=== PATIENT | female | born 1940 | race African-American/Black ===

== ENCOUNTER 2017-11-10 07:54 | Outpatient (CLI) | payer MEDICARE, OTHER | END 2017-11-10 07:55 | disposition home or self-care (01) | LOC: BICMAMMO 07:54 | PROVIDERS: ATTEND Family Medicine | DX: Z12.31 Encounter for screening mammogram for malignant neoplasm of breast (principal); Z80.3 Family history of malignant neoplasm of breast | CPT/HCPCS: 77063; 77067 ==

== ENCOUNTER 2017-12-06 07:15 | Inpatient (IN) | payer MEDICARE, OTHER ==
[2017-12-06 08:02] LABS: #Eosinphils 0.2 thou/uL (0.0-0.7); #Lymphocytes 2.1 thou/uL (1.20-3.40); #Monocytes 0.4 thou/uL (0.11-0.59); #Neutrophils 2.4 thou/uL (1.40-6.50); %Basophils 0.8 % (0.0-1.0); %Eosinophils 3.5 % (0.0-10.0); %Monocytes 7.6 % (0.0-10.0); %Neutrophils 47.2 % (42.0-75.0); Hemoglobin 12.2 g/dL (12.0-16.0); Mean Corpuscular HGB CONC 33.2 g/dL (32.0-36.0); Mean Corpuscular Hemoglobin 28.4 pg (27.0-31.0); Mean Corpuscular Volume 85.6 fL (78.0-98.0); Mean Platelet Volume 8.3 fL (7.4-10.4); Platelet Count 152 thou/uL (130-400); RBC Distribution Width 11.4 % (11.5-14.5); Red Blood Cell (RBC) Count 4.28 mill/uL (4.20-5.40); White Blood Cell (WBC) Count 5.1 thou/uL (4.8-10.8)
[2017-12-06 08:16] LABS: ALT (SGPT) 16 U/L (8-55); AST (SGOT) 21 U/L (5-34); Albumin 3.8 g/dL (3.4-4.8); Alkaline Phosphatase 77 U/L (40-150); Anion Gap 14 mmol/L (10-20); BUN (Urea Nitrogen) 12 mg/dL (9.8-20.1); Bilirubin, Total 0.5 mg/dL (0.2-1.2); Calc. Creatinine Clearance 0 mL/min (70-130); Calcium 9.7 mg/dL (7.8-10.44); Carbon Dioxide 25 mmol/L (23-31); Chloride 106 mmol/L (98-107); Estimated GFR-MDRD 83; Globulin 3.7 g/dL (2.4-3.5); Glucose 145 mg/dL (83-110); Potassium 3.7 mmol/L (3.5-5.1); Protein, Total 7.5 g/dL (6.0-8.3); Sodium 141 mmol/L (136-145)
[2017-12-06 08:52] LABS: Troponin I 0.019 ng/mL (< 0.028)
--- NOTE | 2017-12-06 08:55 | RAD ---
SINGLE VIEW OF THE CHEST: COMPARISON: 12/28/15. HISTORY: Difficulty breathing and cough. FINDINGS: A single view of the chest shows a cardiomediastinal silhouette which is upper limits of normal in si ze. Bilateral pulmonary vascular enlargement is more prominent than on the prior exam. No consolida tion or pleural effusion are seen. IMPRESSION: Worsening pulmonary vascular congestion may represent volume overload or congestive heart failure. POS: H
[2017-12-06] MEDS ORDERED: Furosemide 40 MG/4 ML VIAL ONE (09:50)
[2017-12-06 11:53] LABS: Troponin I 0.024 ng/mL (< 0.028)
[2017-12-06] MEDS ORDERED: Ondansetron HCl/PF 4 MG/2 ML Vial IVP PRN ×2 (12:17→15:03)
[2017-12-06] MEDS ORDERED: Ondansetron ODT 4 MG TAB PO PRN ×2 (12:18→15:03)
[2017-12-06] MEDS ORDERED: Acetaminophen 325 MG TAB PO PRN ×2 (12:18→15:03)
[2017-12-06 12:22] VITALS: BMI 36.6
[2017-12-06] MEDS ORDERED: Prevnar 13-Val Conj/PF 0.5 ML SYRINGE IM ONE (12:30)
[2017-12-06] MEDS ORDERED: Furosemide 40 MG/4 ML VIAL SLOW IVP SCH (14:00)
[2017-12-06 14:13] LABS: Troponin I 0.028 ng/mL (< 0.028)
[2017-12-06] MEDS ORDERED: PROVENTIL INHALER 6.7 G (200 INHALATIONS) INH PRN (15:02)
[2017-12-06] MEDS ORDERED: HYDROcodone/Acetaminophen 7.5/325 mg Tablet PO PRN (15:03)
[2017-12-06] MEDS ORDERED: HYDROcodone/Acetaminophen 5/325 mg Tablet PO PRN (15:03)
[2017-12-06] MEDS ORDERED: Dextrose 50% Abboject 50 ML SYRINGE SLOW IVP PRN (15:06)
[2017-12-06] MEDS ORDERED: Dextrose 5% in Water 1,000 ML IV PRN (15:06)
[2017-12-06] MEDS ORDERED: HumaLOG 300 UNITS/3 ML VIAL SC PRN (15:06)
[2017-12-06] MEDS ORDERED: Enoxaparin Sodium 40 MG/0.4 ML SYRINGE SC SCH (15:30)
[2017-12-06 17:24] LABS: CKMB 2.7 ng/mL (0-6.6); Troponin I 0.022 ng/mL (< 0.028)
[2017-12-06] MEDS: Mometasone/Formoterol 120 PUFF INHALER INH SCH (18:03)
[2017-12-06] MEDS: Guaifenesin DM 100-10/5 ML UDCUP PO PRN (23:20)
[2017-12-07 01:11] LABS: CKMB 2.4 ng/mL (0-6.6); Troponin I 0.021 ng/mL (< 0.028)
[2017-12-07 05:35] LABS: #Eosinphils 0.2 thou/uL (0.0-0.7); #Lymphocytes 2.2 thou/uL (1.20-3.40); #Monocytes 0.5 thou/uL (0.11-0.59); #Neutrophils 2.6 thou/uL (1.40-6.50); %Basophils 0.2 % (0.0-1.0); %Eosinophils 3.8 % (0.0-10.0); %Lymphocytes 39.5 % (21.0-51.0); %Monocytes 9.4 % (0.0-10.0); %Neutrophils 47.1 % (42.0-75.0); Mean Corpuscular Hemoglobin 27.1 pg (27.0-31.0); Mean Corpuscular Volume 84.7 fL (78.0-98.0); Mean Platelet Volume 8.2 fL (7.4-10.4); Platelet Count 164 thou/uL (130-400); RBC Distribution Width 11.2 % (11.5-14.5); Red Blood Cell (RBC) Count 4.79 mill/uL (4.20-5.40); White Blood Cell (WBC) Count 5.5 thou/uL (4.8-10.8)
[2017-12-07] MEDS: Furosemide 40 MG/4 ML VIAL SLOW IVP SCH ×2 (05:46→13:31)
[2017-12-07 06:11] LABS: Anion Gap 12 mmol/L (10-20); BUN (Urea Nitrogen) 15 mg/dL (9.8-20.1); Calc. Creatinine Clearance 84 mL/min (70-130); Calcium 9.8 mg/dL (7.8-10.44); Carbon Dioxide 29 mmol/L (23-31); Cardiac Risk 3.7 (Less than 4.5); Chloride 99 mmol/L (98-107); Cholesterol 140 mg/dl (< 200 Desired); Estimated GFR-MDRD 83; Glucose 111 mg/dL (83-110); HDL Cholesterol 38 mg/dL (>60 Neg Risk); LDL Cholesterol, Calculated 86 mg/dL; Potassium 3.1 mmol/L (3.5-5.1); Sodium 137 mmol/L (136-145); Triglycerides 80 mg/dL (Less than 150)
[2017-12-07] MEDS: Mometasone/Formoterol 120 PUFF INHALER INH SCH ×2 (07:30→20:02)
[2017-12-07] MEDS ORDERED: Amlodipine 5 MG TAB PO SCH (09:00)
[2017-12-07] MEDS ORDERED: Losartan/Hydrochlorothiazide 100 mg/25 mg Tablet PO SCH (09:00)
--- NOTE | 2017-12-07 09:04 | PDOC.PN ---
- Subjective Encounter Start Date: 12/07/17 Encounter Start Time: 09:02 Feels better. Breathing is improved. Oakes like the neb helped her. - Objective Resuscitation Status: Resuscitation Status FULL:Full Resuscitation MAR Reviewed: Yes Vital Signs & Weight: Vital Signs (12 hours) Temp Pulse Resp BP BP Pulse Ox 12/07/17 08:35 81 12/07/17 07:59 98.1 F 81 12 12/07/17 07:34 98.1 F 81 12 136/90 93 L 12/07/17 07:30 82 16 93 L 12/07/17 05:46 80 18 134/92 H 95 12/07/17 00:10 86 18 140/94 H 96 12/06/17 23:20 79 18 129/86 93 L Weight Weight 197 lb 6.4 oz I&O: 12/06/17 12/07/17 12/08/17 06:59 06:59 06:59 Intake Total 450 Output Total 2050 700 Balance -1600 -700 Result Diagrams: 12/07/17 05:11 12/07/17 05:11 Additional Labs: Accuchecks 12/06/17 12/06/17 16:50 11:52 POC Glucose 111 H 108 Phys Exam - Physical Examination Constitutional: NAD Respiratory: no wheezing, no rales, no rhonchi, clear to auscultation bilateral Cardiovascular: RRR, no significant murmur, no rub Gastrointestinal: soft, non-tender, no distention, positive bowel sounds Musculoskeletal: no edema Neurological: non-focal Psychiatric: normal affect, A&O x 3 Skin: normal turgor Dx/Plan (1) CHF (congestive heart failure) Code(s): I50.9 - HEART FAILURE, UNSPECIFIED Status: Acute Qualifiers: Heart failure chronicity: unspecified Plan: INITIAL REPORT FROM [facility] IS THAT THE EF IS PROFOUNDLY DECREASED (20% RANGE). SHE IS IMPROVED WITH THE DIURESIS. CONSULT CARDIOLOGY. NPO. MAY NEED STRESS OR CATH. CONTINUE TELE. WILL LIKELY NEED BETA BLOCKADE AND DAILY DIURETIC. (2) Pulmonary edema Code(s): J81.1 - CHRONIC PULMONARY EDEMA Status: Acute Plan: IMPROVED WITH DIURESIS. (3) Essential hypertension Code(s): I10 - ESSENTIAL (PRIMARY) HYPERTENSION Status: Acute Plan: CONTINUE HOME MEDS WITH ACEI. WILL NEED BETA SAMANTHA. - Plan * ABOVE.
[2017-12-07] MEDS ORDERED: Potassium Chloride 20 MEQ TAB PO SCH (09:15)
[2017-12-07] MEDS: Carvedilol 3.125 MG TAB PO SCH (16:25)
[2017-12-07] MEDS: Atorvastatin Calcium 20 MG TAB PO SCH (21:39)
[2017-12-07] MEDS: Lisinopril 10 MG TAB PO SCH (21:39)
--- NOTE | 2017-12-07 23:56 | CON ---
DATE OF CONSULTATION: 12/07/2017 HISTORY OF PRESENT ILLNESS: Karla Lao is a 77-year-old black female that I have seen in the past . In 11/2005, she underwent cardiac catheterization by Dr. Lake. Ejection fraction was 55%, and she had normal coronary arteries. Her last echocardiogram that I have available was in 04/2008, ejectio n fraction was 50%-55% with trace mitral and trace tricuspid regurgitation. I then followed her for a time in 2016 and 2017 for her varicose veins. She was placed in thigh high compression stockings and overall had improvement in her symptoms and elected not to have radiofrequ ency ablation. She now presented to the emergency room yesterday morning with increased shortness of breath, difficu lty breathing and morning cough. She has noted exertional dyspnea, but denies any chest, arm, neck, or jaw discomfort. At night when she lays down, she develops a cough when she gets up in the morning . She has not noted any peripheral edema. PAST MEDICAL HISTORY: Diabetes, hypertension, hypercholesterolemia, and asthma. OPERATIONS: Hernia surgery, left wrist surgery, bladder suspension, bilateral cataracts, hysterectom y, laparoscopic cholecystectomy. MEDICATIONS: Albuterol 2 puffs q.4 hours p.r.n., amlodipine 5 mg daily, Advair Diskus 1 inhalation b .i.d., Advil p.r.n., losartan/hydrochlorothiazide 100/25 daily, metformin 500 mg b.i.d., Myrbetriq 25 daily. ALLERGIES: PENICILLIN, FAMOTIDINE and PEANUTS. SOCIAL HISTORY: She does not smoke or drink. FAMILY HISTORY: Unremarkable. REVIEW OF SYSTEMS: Twelve-point review of systems otherwise is unremarkable. PHYSICAL EXAMINATION: VITAL SIGNS: Blood pressure 138/78, pulse of 89. HEENT: PERRL. NECK: Supple. CHEST: Clear. CARDIAC: S1, S2 normal, without any S3, S4 or murmurs. Carotid upstrokes normal, without bruits. ABDOMEN: Obese. Normal bowel sounds, no tenderness, organomegaly. EXTREMITIES: Revealed no clubbing, cyanosis or edema. NEUROLOGIC: Grossly intact. SKIN: Warm and dry. LABORATORY DATA: I do not see an EKG on the chart. She does have some significant ventricular ectop y at times with nonsustained ventricular tachycardia. CBC is unremarkable. Sodium 137, potassium 3. 1, chloride 99, carbon dioxide 29, BUN 15, creatinine 0.81, glucose 111. Cardiac enzymes are unremar kable. Cholesterol 140, triglycerides 80, HDL 38, LDL 86. IMPRESSION: 1. Severe left ventricular dysfunction, unknown etiology. 2. Hypertension. 3. Hypercholesterolemia - the patient is not on any medication. 4. Diabetes. 5. Obesity. PLAN: It is recommended the patient undergo cardiac catheterization to rule out significant coronary artery disease. Risks have been discussed including , myocardial infarction, dye reaction, vas cular injury, CVA, transfusion, limb loss, renal loss, etc. Also, risk of intervention with PTCA and stent placement were discussed including , myocardial infarction, emergent CABG, restenosis, st ent thrombosis, vessel perforation, etc. She does not have any history of gastrointestinal bleeding, has never had a stroke, and does not have any upcoming surgery and it was recommended that a drug-el uting stent be placed if needed. We also discussed the need for a LifeVest as an outpatient.
[2017-12-08] MEDS: Guaifenesin DM 100-10/5 ML UDCUP PO PRN ×2 (05:12→20:48)
[2017-12-08] MEDS: Mometasone/Formoterol 120 PUFF INHALER INH SCH ×2 (06:39→19:42)
[2017-12-08] MEDS ORDERED: Lidocaine 1% (PF) 30 ML VIAL ONE (06:54)
[2017-12-08] MEDS ORDERED: Heparin 10,000 UNITS/1 ML VIAL ONE (07:08)
[2017-12-08 07:21] LABS: Anion Gap 12 mmol/L (10-20); BUN (Urea Nitrogen) 26 mg/dL (9.8-20.1); Calc. Creatinine Clearance 73 mL/min (70-130); Calcium 9.9 mg/dL (7.8-10.44); Carbon Dioxide 29 mmol/L (23-31); Chloride 101 mmol/L (98-107); Estimated GFR-MDRD 71; Glucose 122 mg/dL (83-110); Potassium 3.3 mmol/L (3.5-5.1); Sodium 139 mmol/L (136-145)
[2017-12-08] MEDS ORDERED: Fentanyl 100 MCG/2 ML VIAL ONE (08:20)
[2017-12-08] MEDS ORDERED: Midazolam HCl 2 mg/2 ml Vial ONE (08:30)
[2017-12-08] MEDS ORDERED: Protamine Sulfate 50 MG/5 ML VIAL ONE (08:41)
[2017-12-08] MEDS ORDERED: traMADol HCl 50 MG TAB PO PRN (08:43)
[2017-12-08] MEDS ORDERED: Acetaminophen/Codeine 30-300mg Tablet PO PRN ×2 (08:43)
[2017-12-08] MEDS ORDERED: Sodium Chloride 0.9% 1,000 ML IV SCH (08:45)
[2017-12-08] MEDS ORDERED: Potassium Chloride 20 MEQ TAB PO SCH (08:45)
[2017-12-08] MEDS ORDERED: Sodium Chloride 0.9% 200 ML IV SCH (08:45)
[2017-12-08] MEDS ORDERED: Iopamidol 370 76% 100 ML VIAL ONE (09:33)
[2017-12-08] MEDS: Lisinopril 10 MG TAB PO SCH (10:01)
[2017-12-08] MEDS: Carvedilol 3.125 MG TAB PO SCH ×2 (10:02→17:35)
--- NOTE | 2017-12-08 15:55 | PDOC.PN ---
- Subjective Encounter Start Date: 12/08/17 Encounter Start Time: 15:10 Doing well post-cath. No complaints. - Objective Vital Signs & Weight: Vital Signs (12 hours) Temp Pulse Resp BP Pulse Ox 12/08/17 12:15 97.9 F 84 16 110/68 94 L 12/08/17 07:55 98 18 117/71 96 12/08/17 07:20 97.9 F 84 16 96 12/08/17 06:39 89 14 95 12/08/17 04:00 97.9 F 79 17 115/78 95 I&O: 12/07/17 12/08/17 12/09/17 06:59 06:59 06:59 Intake Total 240 Balance 240 Result Diagrams: 12/07/17 05:11 12/08/17 06:57 Additional Labs: Accuchecks 12/07/17 21:23 POC Glucose 120 H Phys Exam - Physical Examination Constitutional: NAD Neck: no JVD, supple Respiratory: no wheezing, no rales, no rhonchi, clear to auscultation bilateral Cardiovascular: RRR, no significant murmur, no rub Gastrointestinal: soft, non-tender, no distention, positive bowel sounds Musculoskeletal: no edema Psychiatric: normal affect, A&O x 3 Skin: normal turgor Dx/Plan (1) CHF (congestive heart failure) Code(s): I50.9 - HEART FAILURE, UNSPECIFIED Status: Acute Qualifiers: Heart failure chronicity: unspecified Plan: On medical management and improved. Stable with low EF. (2) Cardiomyopathy Code(s): I42.9 - CARDIOMYOPATHY, UNSPECIFIED Status: Acute Plan: Non-ischemic cardiomyopathy. Had cath today. Medical management with beta twila, ACEI, diuresis. Will need Life Vest and outpatient management. (3) Pulmonary edema Code(s): J81.1 - CHRONIC PULMONARY EDEMA Status: Resolved (4) Essential hypertension Code(s): I10 - ESSENTIAL (PRIMARY) HYPERTENSION Status: Acute - Plan * Above.
[2017-12-08] MEDS: Furosemide 40 MG TAB PO SCH (16:30)
[2017-12-08] MEDS: Lisinopril 5 MG TAB PO SCH (20:46)
[2017-12-08] MEDS: Atorvastatin Calcium 20 MG TAB PO SCH (20:46)
[2017-12-09] MEDS: Guaifenesin DM 100-10/5 ML UDCUP PO PRN (01:56)
[2017-12-09] MEDS ORDERED: Benzonatate 100 MG CAP PO SCH ×2 (04:15→09:00)
[2017-12-09 05:42] LABS: Anion Gap 10 mmol/L (10-20); BUN (Urea Nitrogen) 25 mg/dL (9.8-20.1); Calc. Creatinine Clearance 83 mL/min (70-130); Calcium 9.4 mg/dL (7.8-10.44); Carbon Dioxide 29 mmol/L (23-31); Chloride 105 mmol/L (98-107); Estimated GFR-MDRD 84; Glucose 120 mg/dL (83-110); Potassium 3.5 mmol/L (3.5-5.1); Sodium 140 mmol/L (136-145)
[2017-12-09] MEDS: Mometasone/Formoterol 120 PUFF INHALER INH SCH (06:25)
--- NOTE | 2017-12-09 11:25 | PQF ---
CLINICAL DOCUMENTATION IMPROVEMENT CLARIFICATION FORM: ICD-10 Updated PLEASE DO AN ADDENDUM TO THE PROGRESS NOTE WITH ANY DOCUMENTATION UPDATES OR ADDITIONS AND CARRY THROUGH TO DC SUMMARY. THANK YOU. DATE: 12/09 ATTN: DR. MONICA GUTIERREZ Please exercise your independent, professional judgment in responding to the clarification form. Clinical indicators are provided on the bottom of this form for your review. Please check appropriate box(s): ACUTE HEART FAILURE TYPE: [ x] Systolic / HFrEF [ ] Diastolic / HFpEF [ ] Combined Systolic / Diastolic [ ] Other diagnosis [ ] Unable to determine For continuity of documentation, please document condition throughout progress notes and discharge summary. Thank You. CLINICAL INDICATORS - SIGNS / SYMPTOMS / LABS ER PHYSICIAN DOCUMENTATION 12/07: DIFFICULTY BREATHING; PT IS BACKING P W/FLUID IN LUNGS, POSSIBLE CHF. LASIX WILL BE ADMINISTERED TO HELP LOSE SOME OF THE FLUID CARDIOLOGY H&P 12/07: IMPRESSION: 1) SEVERE L VENTRICULAR DYSFX, UNKNOWN ETIOLOGY PHYSICIAN PN 12/07 & : DX/PLAN: 1) CHF, UNSPECIFIED, ACUTE; 2) ACUTE PULMONARY EDEMA BNP: 1170 (12/07) ECHO 12/07: EF 20-25%, E/A FLOW REVERSAL NOTED, SUGGESTIVE OF DIASTOLIC DYSFX, L [facility] MILDLY DILATED RISKS: HTN DM II TREATMENTS: IV LASIX IN ER 11/06 TELEMETRY MONITORING CARDIOLOGY CONSULT ECHO THANK YOU! Hanna (This form is maintained as a part of the permanent medical record) 2014 [employer]. All Rights Reserved Hanna Thomas RN, BSN [email or web address] Office: [phone] [facility]
[2017-12-09] MEDS: Furosemide 40 MG TAB PO SCH (11:51)
[2017-12-09] MEDS: Lisinopril 5 MG TAB PO SCH (11:51)
[2017-12-09] MEDS: Carvedilol 3.125 MG TAB PO SCH (11:52)
[2017-12-09 14:51] VITALS: BP 111/70; TEMP 98
--- NOTE | 2017-12-12 13:21 | EKG ---
Test Reason : DYSPNEA Blood Pressure : / mmHG Vent. Rate : 095 BPM Atrial Rate : 095 BPM P-R Int : 160 ms QRS Dur : 088 ms QT Int : 414 ms P-R-T Axes : 048 010 135 degrees QTc Int : 520 ms Sinus rhythm with occasional Premature ventricular complexes Left ventricular hypertrophy with repolarization abnormality Prolonged QT Abnormal ECG Confirmed by DURGA LONG, VINOD ([id number]), news videotape editor RAMYA PIZANO ([id number]) on 12/12/2017 1:20:55 PM Referred By: Confirmed By:VINOD CALIXTO MD
== END 2017-12-09 16:27 | disposition home or self-care (01) | DRG 287 ==
LOC: ERS 07:15 → SURG A 11:37 → 2SW 11:38 → OBSVTOIN 12-07 17:43 → 2NO 12-07 19:21
PROVIDERS: ADMIT Internal Medicine Infectious Disease; ATTEND Internal Medicine Infectious Disease
PROC: 4A023N7 Measurement of Cardiac Sampling and Pressure, Left Heart, Percutaneous Approach (ICD-10-PCS; principal; 2017-12-07)
PROC: B2111ZZ Fluoroscopy of Multiple Coronary Arteries using Low Osmolar Contrast (ICD-10-PCS; 2017-12-07)
DX: I11.0 Hypertensive heart disease with heart failure (principal); I50.21 Acute systolic (congestive) heart failure; I42.9 Cardiomyopathy, unspecified; I25.10 Atherosclerotic heart disease of native coronary artery without angina pectoris; E11.9 Type 2 diabetes mellitus without complications; E66.9 Obesity, unspecified; Z68.35 Body mass index [BMI] 35.0-35.9, adult; E78.00 Pure hypercholesterolemia, unspecified; J45.909 Unspecified asthma, uncomplicated; K21.9 Gastro-esophageal reflux disease without esophagitis
CPT/HCPCS: 36415; 36416; 71045; 80048; 80053; 80061; 82550; 82553; 83735; 83880; 84484; 85025; 85347; 90471; 90670; 93005; 93306; 93454; 93798; 96374; 99152; A4216; C1769; G0009; J1644; J1650; J1940; J2001; J2250; J2720; J3010

== ENCOUNTER 2020-01-10 14:48 | Emergency (ER) | payer MEDICARE, OTHER ==
[2020-01-11 11:48] LABS: SARS-CoV-2 MS2 Positive; SARS-CoV-2 N Gene Negative; SARS-CoV-2 S Gene Negative; SARS-CoV-2 by NAA Not Detected (NotDetected); SARS-CoV-2 orf1ab Negative
== END 2020-01-10 15:06 | disposition home or self-care (01) ==
LOC: ERS 14:48
DX: U07.1 COVID-19 (principal); K21.9 Gastro-esophageal reflux disease without esophagitis; J45.909 Unspecified asthma, uncomplicated; E11.9 Type 2 diabetes mellitus without complications; I11.0 Hypertensive heart disease with heart failure; I50.9 Heart failure, unspecified; E78.00 Pure hypercholesterolemia, unspecified
CPT/HCPCS: 99282; U0003; 87635